=== PATIENT | female | born 2005 | race Caucasian/White ===

== ENCOUNTER 2023-08-31 00:35 | Emergency (ER) | payer OTHER ==
[~2023-08-31] VITALS: Ht 157.5 cm; Wt 77.1 kg
[2023-08-31 00:52] VITALS: BP_SYST 117; PULSE 75; RESP 18; TEMP 97; O2SAT 98
[2023-08-31] MEDS ORDERED: NAPR-1172 PO (03:35)
[2023-08-31 03:47] VITALS: BP_SYST 130; PULSE 70; RESP 19; TEMP 98; O2SAT 98
== END 2023-08-31 03:49 | disposition home or self-care (01) ==
LOC: SED 00:35
DX: S33.5XXA Sprain of ligaments of lumbar spine, initial encounter (principal); S13.4XXA Sprain of ligaments of cervical spine, initial encounter; M79.652 Pain in left thigh; Z79.899 Other long term (current) drug therapy; V89.2XXA Person injured in unspecified motor-vehicle accident, traffic, initial encounter; Y93.89 Activity, other specified; Y92.89 Other specified places as the place of occurrence of the external cause; Y99.8 Other external cause status
CPT/HCPCS: 72040; 72100; 73552; 81025; 99284